=== PATIENT | female | born 1935 | race Caucasian/White ===

== ENCOUNTER 2022-05-23 02:28 | Emergency (ER) | payer MEDICARE, SELFPAY ==
[2022-05-23 02:09] VITALS: BP 0/0; PULSE 0; RESP 0; TEMP 34.6; O2SAT 0; BMI 37.8
--- NOTE | 2022-05-23 03:04 | PC.NURSE ---
Called Herber Hargrove, counseling case manager, and he released pt from autopsy. Ok to release to family's requested Home, [place].
--- NOTE | 2022-05-23 03:05 | PC.NURSE ---
PT FOUND DURING HALFWAY ROUNDS WITH NO RESPIRATIONS AND NO PULSE. CPR INITIATED AT 0150. 0209 - PT ARRIVED VIA EMS WITH CPR IN PROGRESS. NO IV ACCESS PRESENT, VENTILATION PER BAG/MASK VALVE. RHYTHM CHECK REVEALED ASYSTOLE ON MONITOR AND NO PULSE PRESENT. CPR WAS RESUMED. 0213 7.5 ETT ESTABLISHED AND SECURED AT THE 27 GUMLINE. PLACEMENT VERFICATION PER AUSCULTATION AND CO2 DETECTOR PER DR. ESTEVEZ. PULSE CHECK WITH ZERO PULSE AND PLACEMENT IV ACCESS ATTEMPTED WITHOUT SUCCESS X 2. 0215 IO ACCESS ESTABLISHED TO RIGHT LOWER EXTREMITY AND 0216 EPI 1 MG GIVEN IO. PULSE CHECKS EVERY TWO MIN. DURING CODE WERE ALL PULSELESS AND ASYSTOLE REMAINED ON MONITOR. PT REMAINED PULSELESS. CPR WAS RESUMED AFTER EVERY PULSE CHECK. VENTILATION PER BAG MASK VALVE AND THEN BAG/ETT TUBE WITH BILAT. CHEST RISE AND FALL PRESENT. TIME OF 218
[2022-05-23 03:40] VITALS: BP 0/0; PULSE 0; RESP 0; TEMP 34.6; O2SAT 0
--- NOTE | 2022-05-23 03:43 | PC.NURSE ---
FAMILY MEMBER ZAIRA INMAN PHONE NUMBER [phone] TIME OF 218 ANGIE NOTIFICATION [phone] WILL STEPHANIE [phone] DIRECTOR OF RESTAURANT CLEARED FOR RELEASE TO HOME [address] [facility] HOME NOTIFIED FOR CIRCULAR TANK COOPER.
--- NOTE | 2022-05-23 05:03 | HMH.EDCPR ---
ED Disposition Clinical Impression: Cardiac arrest Disposition: Condition on Discharge: Referrals: Beto Douglas MD [Primary Care Provider] - - Critical Care Critical Care Time: No Attestation: On 05/23/22, the high probability of a clinically significant, sudden or life threatening deterioration of the following system(s) required my full and direct attention, intervention and personal management. The time I documented below is in addition to time spent performing reported procedures but includes the following listed in this critical care notation. [facility] Code Documentation - Arrest Information Outside of Hospital The Code Document Section documentation for [id number] Anne Knott was populated with data that defaulted in from the shuttle fitting supervisor in the Code Assessment on f_Reg Service Date] to provide within this report, the status and treatment of the patient in the ED during a Code. This documentation will be supplemented with my direct findings within the body of the report. Date Treatment Initiated: 05/23/22 Time Treatment Initiated: 01:50 Treatment Initiated By: EMS Location of Arrest: [facility] Arrest Witnessed: No Estimated Down Time: UNKNOWN - ALS Code Inititation ALS Initiated By: [facility] STAFF ALS Type: ACLS ALS Initiated Start Time: 01:50 - Patient Condition At Code Start Condition of Patient at Start of Code: Pulseless Monitoring Devices: ECG Monitor, Pulse Oximeter - Labs Fingerstick Blood Glucose: 180 - Code End Time Code Ended: 02:19 Patient Successfully Resuscitated: No Reason Code Ended: - Efforts Terminated Family Members Present During Code: No Names of All Individuals Present at Code: YRIS Funes RN, MIYA Funes RN, MELINDA RN, JR OIL RIG ROUGHNECK, TOLU INTER COM INSTALLER, BUCK RT, MURIEL RT, AURA ERT, CLARICE LACEYA, EVONNE PATEL, DR. ESTEVEZ Medical Decision Making - Medical Records Medical records reviewed: Yes: I reviewed the patient's medical records. - Feliz Inquiry Pt receiving controlled substance: No Vital Signs: 05/23/22 02:09 05/23/22 03:40 Temperature 94.3 F L 94.3 F L Temperature Source Rectal Rectal Pulse Rate 0 L Pulse Rate [Left Femoral] 0 L Respiratory Rate 0 L 0 L Blood Pressure 0/0 L Blood Pressure [Right Arm] 0/0 L 02 Sat by Pulse Oximetry 0 L Oxygen Delivery Method Ambu-Bag Ambu-Bag Orders (Tests/Meds): ED MEDICATIONS Discontinued Medications Generic Name Dose Route Start Last Admin Trade Name Carlos Alberto PRN Reason Stop Dose Admin Epinephrine HCl 1 mg 05/23/22 03:50 05/23/22 02:16 Epinephrine 0.1 Mg/Ml 10ml Syringe (Crash Cart) IV 05/23/22 03:51 1 mg ONCE ONE Administration Medical Decision Narrative: pt intubated and given meds but no resp to acls CPR HPI - General Chief Complaint: Cardiac Arrest/CPR Stated Complaint: code blue Time Seen by Provider: 05/23/22 02:30 Mode of Arrival: EMS Source of Information: EMS, Medical Record Limitations: UNRESPONSIVE Description of Symptoms (Recalled from ER Triage Doc. by RN): PT FOUND DURING CORRECTION ROUNDS WITH NO RESPIRATIONS AND NO PULSE. CPR INITIATED AT 0150. PT ARRIVED VIA EMS WITH CPR IN PROGRESS. NO IV ACCESS PRESENT, VENTILATION PER BAG/MASK VALVE. RHYTHM CHECK REVEALED ASYSTOLE ON MONITOR AND NO PULSE PRESENT. CPR WAS RESUMED. SEE NURSING NOTES. - History of Present Illness HPI narrative: pt found with no pulse and no resp - cpr starterd and continued to er MD complaint: found unresponsive Known history of: CAD, other (covid-19) Associated injuries: No - Related Data Allergies Allergy/AdvReac Type Severity Reaction Status Date / Time No Known Allergies Allergy Verified 05/23/22 03:49 [facility] History - Hepatitis A Screen Attestation statement:: This patient has been screened for Hepatitis A risk factors. I have reviewed the patient's past medical history: Yes ROS Obtained: Yes unobtainable due
== END 2022-05-23 05:13 | disposition expired ==
PROVIDERS: Emergency Provider Emergency Medicine; PCP Family Medicine
DX: I46.9 Cardiac arrest, cause unspecified (principal)
CPT/HCPCS: 96374; 99284